=== PATIENT | male | born 1950 | race Caucasian/White ===

== ENCOUNTER 2017-12-15 12:38 | Outpatient (CLI) | payer MEDICARE ==
[~2017-12-15 12:38] MED LIST: ALBUTEROL2.5 MG/3 M INH; ASPIRIN500 MG ORAL; BENADRYL25 MG ORAL; BENICAR HCT 201 EACH ORAL
--- NOTE | 2017-12-15 19:23 | Diagnostic Imaging Report ---
Indication: Questionable mass on chest radiograph. Technique: CT of the chest performed utilizing automated exposure control with intravenous contrast. Axial, sagittal and coronal images. CT dose: Total DLP 1034 mGycm; CTDI vol 20.73 mGy Comparison: None Findings: Multiple scattered calcified granulomas are noted bilaterally. There is a 2.5 cm pneumatocele in the left lower lobe which may be sequela of prior infection or trauma (image 39). There is dependent atelectatic changes bilaterally. Linear scarring in the lingula and anterior right upper lobe. There is no pleural effusion or pneumothorax. Heart size within normal limits. There is no pericardial effusion. Thoracic aorta is normal in caliber. There is conventional branching anatomy of the great vessels. There is no significant atherosclerotic calcification. There are calcified mediastinal and hilar lymph nodes. No pathologically enlarged mediastinal lymphadenopathy is seen. Thyroid is unremarkable in appearance. Multiple calcifications are noted within the spleen. Liver, gallbladder, adrenal glands and visualized portions of the kidneys are unremarkable. Pancreas demonstrates some mild age-related fatty atrophy but is otherwise unremarkable. There are multilevel degenerative changes of the spine. No acute osseous abnormality is seen. IMPRESSION: Multiple scattered calcified granulomas. Calcified hilar and mediastinal lymph nodes and multiple punctate calcifications in the spleen. Findings may be related to prior granulomatous exposure. Correlate clinically. 2.5 cm pneumatocele in the left lower lobe possibly sequela of prior trauma or infection. The CT scanner at [facility] is accredited by the [employer] and the scans are performed using protocols designed to limit radiation exposure to as low as reasonably achievable to attain images of sufficient resolution adequate for diagnostic evaluation.
== END 2017-12-15 14:38 | disposition home or self-care (01) ==
LOC: CAT 12:38
DX: R91.8 Other nonspecific abnormal finding of lung field (principal)
CPT/HCPCS: 71260; Q9967